=== PATIENT | male | born 1980 | race Two or more races ===

== ENCOUNTER 2021-05-20 04:17 | Emergency (ER) | payer OTHER ==
[~2021-05-20] VITALS: Ht 175.3 cm; Wt 81.6 kg
[2021-05-20] MEDS ORDERED: NORFLEX100MG PO (13:24)
[2021-05-20] MEDS ORDERED: NAPROXEN375 MG PO (13:24)
== END 2021-05-20 14:25 | disposition home or self-care (01) ==
LOC: ER 04:17 → CPU-OBS 04:34 → ER 04:34
DX: R07.89 Other chest pain (principal)
CPT/HCPCS: 82805; 36600; 93005; G0378; G0379

== ENCOUNTER 2022-09-09 05:49 | Emergency (ER) | payer OTHER ==
[~2022-09-09] VITALS: Ht 175.3 cm; Wt 83.9 kg
== END 2022-09-09 10:21 | disposition home or self-care (01) ==
LOC: ER 05:49
DX: B34.9 Viral infection, unspecified (principal); R50.9 Fever, unspecified; Z20.822 Contact with and (suspected) exposure to COVID-19

== ENCOUNTER → 2022-09-09 | Emergency (ER) | payer OTHER ==
[~2022-09-09] MED LIST: NAPROXEN375 MG PO; NORFLEX100MG PO
== END | disposition home or self-care (01) ==
LOC: ER 05:44
DX: B34.9 Viral infection, unspecified (principal); R50.9 Fever, unspecified; Z91.010 Allergy to peanuts

== ENCOUNTER 2023-04-08 08:02 | Outpatient (CLI) | payer OTHER | END 2023-04-08 08:12 | disposition home or self-care (01) | LOC: SONOGRAMA 08:02 | PROVIDERS: ATTEND Internal Medicine Nephrology | DX: R06.02 Shortness of breath (principal); R80.9 Proteinuria, unspecified; N18.2 Chronic kidney disease, stage 2 (mild) ==

== ENCOUNTER 2023-06-15 08:29 | Outpatient (CLI) | payer OTHER | END 2023-06-15 08:41 | disposition home or self-care (01) | LOC: SONOGRAMA 08:29 | PROVIDERS: ATTEND Internal Medicine Gastroenterology | DX: R10.84 Generalized abdominal pain (principal) ==

== ENCOUNTER 2023-08-18 09:20 | Outpatient (CLI) | payer OTHER | END 2023-08-18 09:37 | disposition home or self-care (01) | LOC: MRI 09:20 | DX: D48.11 Desmoid tumor (principal); Z91.018 Allergy to other foods | CPT/HCPCS: 70553 ==

== ENCOUNTER 2023-08-18 10:15 | Outpatient (CLI) | payer OTHER | END 2023-08-18 10:16 | disposition home or self-care (01) | LOC: LAB 10:15 | PROVIDERS: ATTEND Radiology Diagnostic Radiology | DX: D48.118 Desmoid tumor of other site (principal); Z91.018 Allergy to other foods ==

== ENCOUNTER 2023-08-19 11:09 | Outpatient (CLI) | payer OTHER | END 2023-08-19 11:10 | disposition home or self-care (01) | LOC: NUCLEAR 11:09 | DX: E85.9 Amyloidosis, unspecified (principal); E85.4 Organ-limited amyloidosis ==

== ENCOUNTER 2023-12-02 13:48 | Outpatient (CLI) | payer OTHER | END 2023-12-02 13:58 | disposition home or self-care (01) | LOC: SONOGRAMA 13:48 | PROVIDERS: ATTEND Internal Medicine | DX: E04.2 Nontoxic multinodular goiter (principal) ==

== ENCOUNTER 2025-02-06 15:19 | Outpatient (CLI) | payer OTHER | END 2025-02-06 15:29 | disposition home or self-care (01) | LOC: TOM 15:19 | DX: J44.9 Chronic obstructive pulmonary disease, unspecified (principal) ==